=== PATIENT | female | born 2000 | race Caucasian/White ===

== ENCOUNTER 2021-07-21 16:34 | Outpatient (CLI) | payer BC, SELFPAY ==
--- NOTE | ~2021-07-21 | XR_ITS ---
EXAMINATION: XR ankle LT 2V EXAM DATE: 07/21/2021 17:26 INDICATION: Multiple Joint Pain,Cracking And Mortise Pain . TECHNIQUE: Frontal and lateral projections of the left ankle. There is no prior study for compariso n. FINDINGS: Incidental small bone island in the left tibial plafond. No evidence of talar osteochondra l defect. The ankle mortise appears intact. There are no acute fractures or dislocations identified. There is no subcutaneous gas. The soft tissue is unremarkable. There are no radiopaque foreign shelley dies. IMPRESSION: 1. Unremarkable XR ankle LT 2V exam. Reviewed, dictated and finalized at location A. RTISING EDITOR
--- NOTE | ~2021-07-21 | XR_ITS ---
EXAMINATION: XR wrist LT 2V EXAM DATE: 07/21/2021 17:26 INDICATION: Multiple joint pain. TECHNIQUE: Left wrist frontal and lateral projections. Correlation is made to contralateral wrist sa me date. FINDINGS: There are no acute left wrist fractures or dislocations identified. There is no subcutaneo us gas. The soft tissue is unremarkable. There are no radiopaque foreign bodies. There are no bon y erosions identified. IMPRESSION: 1. Unremarkable XR wrist LT 2V exam. Reviewed, dictated and finalized at location A. L VIAL INSPECTOR
--- NOTE | ~2021-07-21 | XR_ITS ---
EXAMINATION: XR ankle RT 2V EXAM DATE: 07/21/2021 17:27 INDICATION: Multiple Joint Pain,Cracking Ankles,Mortise Pain . TECHNIQUE: Frontal and lateral projections of the right ankle. There is no prior study for comparis on. FINDINGS: The ankle mortise appears intact. There are no acute right ankle fractures or dislocations identified. There is no subcutaneous gas. The soft tissue is unremarkable. There are no radiopaq ue foreign bodies. IMPRESSION: 1. Unremarkable XR ankle RT 2V exam. Reviewed, dictated and finalized at location A. ER OPERATOR
--- NOTE | ~2021-07-21 | XR_ITS ---
EXAMINATION: XR foot LT 2V EXAM DATE: 07/21/2021 17:27 INDICATION: Multiple Joint Pain,Foot Spasms . TECHNIQUE: Frontal and lateral projections of the left foot. There is no prior study for comparison . FINDINGS: There are no bony erosions identified. There are no acute left foot fractures or dislocati ons identified. There is no subcutaneous gas. The soft tissue is unremarkable. There are no radio paque foreign bodies. IMPRESSION: 1. Unremarkable XR foot LT 2V exam. Reviewed, dictated and finalized at location A. RAL GAS BASIS TRADER
--- NOTE | ~2021-07-21 | XR_ITS ---
EXAMINATION: XR hand RT 2V EXAM DATE: 07/21/2021 17:27 INDICATION: Multiple joint pain. TECHNIQUE: Right hand frontal, lateral projections obtained and reviewed. There is no prior study fo r comparison. FINDINGS: Right metacarpal bones are unremarkable. There are no bony erosions identified. There are no acute fractures or dislocations identified. There is no subcutaneous gas. The soft tissue is un remarkable. There are no radiopaque foreign bodies. IMPRESSION: 1. Unremarkable XR hand RT 2V exam. Reviewed, dictated and finalized at location A. Y OPERATOR
--- NOTE | ~2021-07-21 | XR_ITS ---
EXAMINATION: XR hand LT 2V EXAM DATE: 07/21/2021 17:27 INDICATION: Multiple joint pain. TECHNIQUE: Frontal and lateral projections of the left hand. Correlation is made to contralateral figueroa nd, left wrist exam same date. FINDINGS: There are no acute left hand fractures or dislocations identified. There is no subcutaneou s gas. The soft tissue is unremarkable. There are no radiopaque foreign bodies. IMPRESSION: 1. Unremarkable XR hand LT 2V exam. Reviewed, dictated and finalized at location A. OR ASIC DESIGN ENGINEER
--- NOTE | ~2021-07-21 | XR_ITS ---
EXAMINATION: XR foot RT 2V EXAM DATE: 07/21/2021 17:27 INDICATION: Multiple Joint Pain,Foot Spasms TECHNIQUE: Frontal and lateral projections of the right foot. Correlation is made to contralateral f oot same date. FINDINGS: There are no bony erosions identified. There are no acute right foot fractures or dislocat ions identified. There is no subcutaneous gas. The soft tissue is unremarkable. There are no radi opaque foreign bodies. IMPRESSION: 1. Unremarkable XR foot RT 2V exam. Reviewed, dictated and finalized at location A. WARE CLERK
--- NOTE | ~2021-07-21 | XR_ITS ---
EXAMINATION: XR sacroiliac joints min 3V EXAM DATE: 07/21/2021 17:27 INDICATION: Multiple Joint Pain,Low Back Area Pain . TECHNIQUE: Sacroiliac frontal and bilateral oblique projections. There is no prior study for compar william. FINDINGS: Sacroiliac joints are symmetric and unremarkable, no evidence of effusion, erosion or scle rosis. Sacral arcuate lines are intact. IUD. IMPRESSION: Unremarkable symmetric sacroiliac joints. Reviewed, dictated and finalized at location A. OND SANDER
--- NOTE | ~2021-07-21 | XR_ITS ---
EXAMINATION: XR wrist RT 2V EXAM DATE: 07/21/2021 17:26 INDICATION: Multiple joint pain. TECHNIQUE: Right wrist frontal and lateral projections. There are no prior studies for comparison. FINDINGS: There are no bony erosions identified. There are no acute right wrist fractures or disloca tions identified. There is no subcutaneous gas. The soft tissue is unremarkable. There are no rad iopaque foreign bodies. IMPRESSION: 1. Unremarkable XR wrist RT 2V exam. Reviewed, dictated and finalized at location A. INUOUS YARN DYEING MACHINE OPERATOR
== END 2021-07-21 16:35 | disposition home or self-care (01) ==
PROVIDERS: PCP Family Medicine; Visit Provider Nurse Practitioner Family
DX: M25.50 Pain in unspecified joint (principal); R53.81 Other malaise; M79.10 Myalgia, unspecified site
CPT/HCPCS: 72202; 73100; 73120; 73600; 73620